=== PATIENT | male | born 1965 ===

== ENCOUNTER → 2025-03-21 08:01 | Outpatient (CLI) | payer OTHER, SELFPAY | LOC: LAB 08:23 | PROVIDERS: Visit Provider Nurse Practitioner Family | DX: J02.9 Acute pharyngitis, unspecified (principal) | CPT/HCPCS: 87070; 87077; 87147 ==

== ENCOUNTER → 2025-03-30 07:58 | Outpatient (CLI) | payer OTHER, SELFPAY | PROVIDERS: Visit Provider Chiropractor | DX: J02.9 Acute pharyngitis, unspecified (principal) | CPT/HCPCS: 87070 ==